=== PATIENT | female | born 1955 | race Caucasian/White ===

== ENCOUNTER 2017-10-25 15:16 | Emergency (ER) | payer BC ==
[~2017-10-25] VITALS: Ht 167.6 cm; Wt 67.0 kg
[2017-10-25 15:55] VITALS: BP 135/87
== END 2017-10-25 16:37 | disposition home or self-care (01) ==
LOC: ER 15:17
DX: K42.9 Umbilical hernia without obstruction or gangrene (principal)
CPT/HCPCS: 99284